=== PATIENT | female | born 1995 | race Two or more races ===

== ENCOUNTER 2020-01-22 06:16 | Inpatient (IN) | payer OTHER ==
[~2020-01-22] VITALS: Ht 160 cm; Wt 76.2 kg
[2020-01-22] MEDS ORDERED: PRENATAL CAPLE1 EAC1 PO (06:19)
== END 2020-01-24 12:02 | disposition home or self-care (01) | DRG 807 ==
LOC: LDR 06:16 → OB/GYN 06:16
PROVIDERS: ADMIT Obstetrics & Gynecology; ATTEND Obstetrics & Gynecology
PROC: 10E0XZZ Delivery of Products of Conception, External Approach (ICD-10-PCS; principal; 2020-01-22)
PROC: 4A1HXFZ Monitoring of Products of Conception, Cardiac Rhythm, External Approach (ICD-10-PCS; 2020-01-22)
DX: O80 Encounter for full-term uncomplicated delivery (principal); Z37.0 Single live birth; Z3A.38 38 weeks gestation of pregnancy; Z20.828 Contact with and (suspected) exposure to other viral communicable diseases